=== PATIENT | male | born 1985 | race Caucasian/White ===

== ENCOUNTER 2023-03-27 11:50 | Outpatient (CLI) | payer OTHER, SELFPAY | END 2023-03-27 11:51 | disposition home or self-care (01) | PROVIDERS: PCP Family Medicine; Visit Provider Family Medicine | DX: Z00.00 Encounter for general adult medical examination without abnormal findings (principal); R29.898 Other symptoms and signs involving the musculoskeletal system; M79.641 Pain in right hand; R53.83 Other fatigue | CPT/HCPCS: 80053; 82607; 84443 ==

== ENCOUNTER 2023-07-24 09:32 | Outpatient (CLI) | payer OTHER, SELFPAY | END 2023-07-24 09:33 | disposition home or self-care (01) | PROVIDERS: PCP Family Medicine; Visit Provider Family Medicine | DX: Z00.00 Encounter for general adult medical examination without abnormal findings (principal); R29.898 Other symptoms and signs involving the musculoskeletal system; E66.01 Morbid (severe) obesity due to excess calories; Z13.6 Encounter for screening for cardiovascular disorders | CPT/HCPCS: 80053; 80061; 82607 ==